=== PATIENT | female | born 1940 | race Caucasian/White ===

== ENCOUNTER 2017-08-15 08:50 | Observation (INO) ==
[2017-08-15] MEDS ORDERED: Ondansetron 4 MG/2 ML VIAL IVP ONE (09:14)
[2017-08-15] MEDS ORDERED: *HR* FentaNYL (PF) 100 MCG/2 ML VIAL IVP ONE ×3 (09:14→12:20)
[2017-08-15] MEDS ORDERED: 0.9 % Sodium Chloride 1,000 ML IVC ONE (09:17)
--- NOTE | 2017-08-15 09:21 | Emergency Department Note ---
Disposition Clinical Impression: Renal calculus Congestive heart failure Qualifiers: Heart failure type: other Qualified Code(s): I50.9 - Heart failure, unspecified Disposition: Admitted As Inpatient Condition: Good Time of Disposition: 15:16 General Adult HPI - General Chief complaint: ED Chest Pain Stated complaint: chest pain Time Seen by Provider: 08/15/17 09:13 Source: patient Limitations: no limitations Nursing Notes Reviewed: Yes Vital Signs Reviewed: Yes - History of Present Illness HPI Narrative: Patient complaining of left-sided back pain that began this morning. Is unable to get comfortable. Has not tried any medication to help this. Does radiate around into her abdomen. Also has suprapubic tenderness. No fevers or chills. No shortness of breath or chest pain. Pain Scale: 8 - Related Data Home Medications Medication Instructions Recorded Confirmed HYDROcodone/Acet 10/325 mg [[place] 1 tab PO QID PRN 08/15/17 08/15/17 10-325 mg] Omeprazole [PriLOSEC] 40 mg PO DAILY 08/15/17 08/15/17 SUMAtriptan Succinate [Imitrex] 100 mg PO DAILY PRN 08/15/17 08/15/17 Zolpidem [Ambien] 10 mg PO DAILY 08/15/17 08/15/17 Allergies Allergy/AdvReac Type Severity Reaction Status Date / Time aspirin [ASA] Allergy Hives Verified 08/15/17 09:20 All systems ED: reviewed and negative except as stated. Constitutional: Denies: fever Cardiovascular: Denies: chest pain, palpitations, syncope Respiratory: Denies: cough, dyspnea Gastrointestinal: Reports: abdominal pain (Suprapubic). Denies: nausea, vomiting, diarrhea, hematemesis, melena, hematochezia Genitourinary: Denies: urgency, dysuria Musculoskeletal: Reports: back pain (Left-sided). Denies: neck pain Integumentary: Denies: rash Neurological: Denies: headache, weakness Past Medical History - Past Medical History Attestation: Yes The following information was validated with the patient. 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 - Social History Smoking Status: Never smoker Smokeless Tobacco Status: No Alcohol use: Reports: none Drug use: Reports: none Physical Exam - General Limitations: no limitations General appearance: alert, in no apparent distress - Head Head exam: atraumatic, normocephalic, normal inspection - Eye Eye exam: Present: normal appearance, PERRL, EOMI - ENT ENT exam: normal exam, normal oropharynx, mucous membranes moist - Neck Neck exam: Present: normal inspection, full ROM, trachea midline - Chest Chest inspection: Present: normal inspection, symmetric chest wall rise - Respiratory Respiratory exam: Present: normal lung sounds bilaterally. Absent: respiratory distress, accessory muscle use - Cardiovascular Cardiovascular exam: Present: regular rate, normal rhythm, normal heart sounds - Abdominal Exam Abdominal exam: Present: soft, tenderness (To palpation of left flank around to the suprapubic area.). Absent: distention, guarding, rebound, rigidity, organomegaly - Extremities Exam Extremities exam: Present: normal inspection, full ROM. Absent: tenderness, pedal edema - Back Exam Back exam: Present: normal inspection, full ROM. Absent: tenderness - Neurological Exam Neurological exam: Present: alert, oriented X3 - Psychiatric Psychiatric exam: Present: normal affect, normal mood - Skin Skin exam: Present: warm, dry, intact, normal color. Absent: rash, cyanosis, diaphoresis Course Course Narrative: Female patient presenting to emergency department complaining of left flank pain. She states it radiats around into her groin area. She is also complaining of some suprapubic tenderness. Patient is writhing around in discomfort and is nauseated and retching in the room. She has left CVA tenderness on exam and suprapubic tenderness whenever I palpate. Her abdomen is otherwise soft and nonrigid. There are no masses. Lung sounds are clear heart tones are normal. Patient has no signs of edema to her extremities. She reports no medical history other than the daughter states she had a slight heart attack several years ago. No history of CHF. She does say that she had a kidney stone but this is been over 10 years ago. We will provide patient with pain relief earlier fluids and CT her abdomen. She is agreeable with this. - Reevaluation(s) Reevaluation #1: After second dose of fentanyl and Toradol patient is now resting comfortably. She states the pain has decreased significantly. She does have a 4 mm stone in her left ureter. With some mild hydronephrosis. We are waiting for her to give us a urine sample at this time. Time: 10:21 Reevaluation #2: Patient stating that she is in more pain again. She is wanting to go home however her oxygen saturation did drop to 88%. She has no history of any lung disease or heart disease. She did initially have a report of chest pain when she came in. The patient is insistent that she had actually have chest pain that was more in her lower back area is consistent with her left flank pain. I questioned her about this several times. She denies any shortness of breath or cough. She is well-appearing. I discussed with her that we will give her Percocet and see if that decreases her pain. She expressed understanding. Time: 13:38 Reevaluation #3: Patient is not on oxygen at home. When she believes reaction saturation drops to 85%. Despite her desire to go home we have discussed that she should stay in the hospital. She is agreeable to this at this time. Chest x-ray does not show a focal consolidation. She does not appear in any distress and she still denies any chest pain. We will admit patient to the hospital. Chest x-ray did show some pulmonary edema. As well as cardiomegaly. Time: 15:14 Vital Signs Temperature 97.9 F 08/15/17 08:53 Pulse Rate 96 08/15/17 08:53 Respiratory Rate 22 08/15/17 08:53 Blood Pressure 160/97 08/15/17 08:53 O2 Sat by Pulse Oximetry 90 08/15/17 08:53 Temperature 98.0 F 08/16/17 04:37 Pulse Rate 84 08/16/17 04:37 Respiratory Rate 16 08/16/17 04:37 Blood Pressure 97/63 08/16/17 04:37 O2 Sat by Pulse Oximetry 92 08/16/17 04:37 Oxygen Delivery Oxygen Delivery Room Air Medical Decision Making - Medical Records Medical records reviewed: Yes I reviewed the patient's medical records. - Lab Data Lab results reviewed: Yes I reviewed the patient's lab results. Result diagrams: 08/16/17 00:42 08/16/17 00:42 Lab Results 08/15/17 08/15/17 08/15/17 Range/Units 09:03 09:03 12:05 WBC 8.8 (4.3-11.1) K/mcL RBC 5.08 H (3.82-4.97) M/mcL Hgb 15.5 H (11.5-15.4) g/dL Hct 48.8 H (35.3-44.9) % MCV 96.1 (83.0-100.0) fL MCH 30.5 (28.0-33.3) pg MCHC 31.8 (31.6-35.5) g/dL RDW 13.2 (11.5-14.5) % Plt Count 351 (140-400) K/mcL MPV 9.6 (9.4-12.4) fL Immature Gran % 0.5 (0-4) % Seg Neutrophils % 78.1 % Lymphocytes % 16.1 % Monocytes % 4.1 % Eosinophils % 0.6 % Basophils % 0.6 % Neutrophils # 6.9 (1.6-8.9) K/mcL Lymphocytes # 1.4 (0.6-4.6) K/mcL Monocytes # 0.4 (0.0-1.3) K/mcL Eosinophils # 0.1 (0.0-0.6) K/mcL Basophils # 0.1 (0.0-0.2) K/mcL Sodium 142 (136-145) mEq/L Potassium 3.9 (3.5-5.1) mEq/L Chloride 106 (98-107) mEq/L Carbon Dioxide 26 (23-29) mEq/L BUN 10 (8-23) mg/dL Creatinine 0.93 (0.60-1.20) mg/dL Est GFR ( Amer) > 60 (> 60) Est GFR (Non-Af Amer) 58 L (> 60) BUN/Creatinine Ratio 11 (6-26) Glucose 130 H (70-105) mg/dL Calculated Osmolality 295 (280-300) Calcium 9.4 (8.6-10.3) mg/dL B-Natriuretic Peptide (Less than 100) pg/mL Urine Color Yellow (Yellow) Urine Clarity Clear (Clear) Urine pH 6.0 (5.0-8.0) pH Units Ur Specific [place] 1.020 (1.010-1.025) Urine Protein Negative (Neg-Trace) mg/dL Urine Glucose (UA) Normal (Normal) mg/dL Urine Ketones Negative (Negative) mg/dL Urine Blood Moderate H (Negative) Urine Nitrite Negative (Negative) Urine Bilirubin Negative (Negative) Urine Urobilinogen Normal (Normal) mg/dL Ur Leukocyte Esterase Small H (Negative) Urine Microscopic RBC 30-50 H (0-3) per hpf Urine Microscopic WBC 5-15 H (0-3) per hpf Ur Squamous Epith Cells Many H (None-Few) per lpf Urine Bacteria Few (None-Few) per hpf Hyaline Casts None Seen (None-Few) per lpf Ur Culture Indicated? NO. A (NO) 08/15/17 Range/Units 15:37 WBC (4.3-11.1) K/mcL RBC (3.82-4.97) M/mcL Hgb (11.5-15.4) g/dL Hct (35.3-44.9) % MCV (83.0-100.0) fL MCH (28.0-33.3) pg MCHC (31.6-35.5) g/dL RDW (11.5-14.5) % Plt Count (140-400) K/mcL MPV (9.4-12.4) fL Immature Gran % (0-4) % Seg Neutrophils % % Lymphocytes % % Monocytes % % Eosinophils % % Basophils % % Neutrophils # (1.6-8.9) K/mcL Lymphocytes # (0.6-4.6) K/mcL Monocytes # (0.0-1.3) K/mcL Eosinophils # (0.0-0.6) K/mcL Basophils # (0.0-0.2) K/mcL Sodium (136-145) mEq/L Potassium (3.5-5.1) mEq/L Chloride (98-107) mEq/L Carbon Dioxide (23-29) mEq/L BUN (8-23) mg/dL Creatinine (0.60-1.20) mg/dL Est GFR ( Amer) (> 60) Est GFR (Non-Af Amer) (> 60) BUN/Creatinine Ratio (6-26) Glucose (70-105) mg/dL Calculated Osmolality (280-300) Calcium (8.6-10.3) mg/dL B-Natriuretic Peptide 61 (Less than 100) pg/mL Urine Color (Yellow) Urine Clarity (Clear) Urine pH (5.0-8.0) pH Units Ur Specific [place] (1.010-1.025) Urine Protein (Neg-Trace) mg/dL Urine Glucose (UA) (Normal) mg/dL Urine Ketones (Negative) mg/dL Urine Blood (Negative) Urine Nitrite (Negative) Urine Bilirubin (Negative) Urine Urobilinogen (Normal) mg/dL Ur Leukocyte Esterase (Negative) Urine Microscopic RBC (0-3) per hpf Urine Microscopic WBC (0-3) per hpf Ur Squamous Epith Cells (None-Few) per lpf Urine Bacteria (None-Few) per hpf Hyaline Casts (None-Few) per lpf Ur Culture Indicated? (NO) - Radiology Data Radiology results reviewed: Yes I reviewed the patient's radiology results. Abdomen/Pelvis CT 08/15/17 09:15 IMPRESSION: 4 mm stone in the proximal left ureter with moderate hydronephrosis. D/ / Ken Egan MD / Ken Egan MD Interpreting Provider: Ken Egan MD Chest X-Ray 08/15/17 14:35 IMPRESSION: Mild congestive heart failure. D/ / 08/15/2017 14:54:49 Edin Casper MD / grecia Interpreting Provider: Edin Casper MD
[2017-08-15 09:45] LABS: BUN/Creatinine Ratio 11 (6-26); Blood Urea Nitrogen 10 mg/dL (8-23); Calcium 9.4 mg/dL (8.6-10.3); Carbon Dioxide 26 mEq/L (23-29); Chloride 106 mEq/L (98-107); Glucose 130 mg/dL (70-105); Osmolality,Calculated 295 (280-300); Potassium 3.9 mEq/L (3.5-5.1); Sodium 142 mEq/L (136-145); eGFR For African Americans > 60 (> 60); eGFR For Non-African Americans 58 (> 60)
[2017-08-15] MEDS ORDERED: Ketorolac 15 MG/ML VIAL IVP ONE (09:53)
--- NOTE | 2017-08-15 09:54 | Emergency Department Note ---
Disposition Clinical Impression: Atypical chest pain Disposition: Still a Patient Referrals: Gera Aguilar DO [Primary Care Provider] - Forms: ED Satisfaction Letter General Adult HPI - General Chief complaint: ED Chest Pain Stated complaint: chest pain Time Seen by Provider: 08/15/17 09:13 Source: patient Limitations: no limitations - History of Present Illness Pain Scale: 8 - Related Data Allergies Allergy/AdvReac Type Severity Reaction Status Date / Time aspirin [ASA] Allergy Hives Verified 08/15/17 09:20 Past Medical History - Past Medical History Medical history: Reports: no medical history Psychiatric history: Reports: no psych history 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 I agree with the documented findings, disposition and treatment plan as described except to the extent set forth below. Patient seen with emergency medicine resident Dr. Ave Mchugh, Please see a copy of his note for details of the H&P, ED evaluation, management and disposition. I have independently evaluated the patient and confirmed appropriate portions of the history and physical exam. Briefly: This 76-year-old female presents with chest pain last night now back pain rating to the left groin. History of kidney stones but she says feels different. EKG shows nonspecific ST-T changes but no acute ischemic changes noted. Patient getting labs medications CT scan. And urinalysis. Disposition pending. Time: 09:53 Vital Signs Temperature 97.9 F 08/15/17 08:53 Pulse Rate 96 08/15/17 08:53 Respiratory Rate 22 08/15/17 08:53 Blood Pressure 160/97 08/15/17 08:53 O2 Sat by Pulse Oximetry 90 08/15/17 08:53 Temperature 97.9 F 08/15/17 08:58 Pulse Rate 96 08/15/17 08:58 Respiratory Rate 22 08/15/17 08:58 Blood Pressure 160/97 08/15/17 08:58 O2 Sat by Pulse Oximetry 90 08/15/17 08:58 Oxygen Delivery Oxygen Delivery Room Air Medical Decision Making - Lab Data Result diagrams: 08/15/17 09:03 Lab Results 08/15/17 Range/Units 09:03 Sodium 142 (136-145) mEq/L Potassium 3.9 (3.5-5.1) mEq/L Chloride 106 (98-107) mEq/L Carbon Dioxide 26 (23-29) mEq/L BUN 10 (8-23) mg/dL Creatinine 0.93 (0.60-1.20) mg/dL Est GFR ( Amer) > 60 (> 60) Est GFR (Non-Af Amer) 58 L (> 60) BUN/Creatinine Ratio 11 (6-26) Glucose 130 H (70-105) mg/dL Calculated Osmolality 295 (280-300) Calcium 9.4 (8.6-10.3) mg/dL
[2017-08-15 12:23] LABS: Bilirubin,Urine Negative (Negative); Blood,Urine Moderate (Negative); Clarity,Urine Clear (Clear); Color,Urine Yellow (Yellow); Glucose,Urine (UA) Normal (Normal); Ketones,Urine Negative (Negative); Leukocyte Esterase,Urine Small (Negative); Nitrite,Urine Negative (Negative); Protein,Urine Negative (Neg-Trace); Urobilinogen,Urine Normal (Normal)
[2017-08-15 12:25] LABS: Bacteria,Urine Few per hpf (None-Few); Hyaline Casts,Urine None Seen per lpf (None-Few); RBC,Urine 30-50 per hpf (0-3); Squamous Epithelial Cell,Urine Many per lpf (None-Few)
[2017-08-15] MEDS ORDERED: *HR* OxyCODONE/APAP 7.5/325 TABLET PO STA (13:37)
[2017-08-15 15:19] LABS: Basophils # 0.1 K/mcL (0.0-0.2); Basophils % 0.6 %; Eosinophils # 0.1 K/mcL (0.0-0.6); Eosinophils % 0.6 %; Hematocrit 48.8 % (35.3-44.9); Hemoglobin 15.5 g/dL (11.5-15.4); Immature Granulocytes % 0.5 % (0-4); Lymphocytes # 1.4 K/mcL (0.6-4.6); Lymphocytes % 16.1 %; Mean Corpuscular HGB Conc 31.8 g/dL (31.6-35.5); Mean Corpuscular Hemoglobin 30.5 pg (28.0-33.3); Mean Corpuscular Volume 96.1 fL (83.0-100.0); Mean Platelet Volume 9.6 fL (9.4-12.4); Monocytes # 0.4 K/mcL (0.0-1.3); Monocytes % 4.1 %; Neutrophils # 6.9 K/mcL (1.6-8.9); Platelet Count 351 K/mcL (140-400); Red Blood Count 5.08 M/mcL (3.82-4.97); Red Cell Distribution Width 13.2 % (11.5-14.5); Segmented Neutrophils % 78.1 %
[2017-08-15] MEDS ORDERED: Naloxone 0.4 MG/ML INJ IVP PRN (16:17)
[2017-08-15] MEDS ORDERED: *HR* HYDROcodone/Acet 10/325 mg TABLET PO PRN (16:24)
[2017-08-15] MEDS ORDERED: Ondansetron 4 MG/2 ML VIAL IVP PRN (16:25)
[2017-08-15] MEDS ORDERED: *HR* OxyCODONE/APAP 5/325 TABLET PO PRN (16:30)
--- NOTE | 2017-08-15 16:32 | Internal Med History&Physical ---
Date of Encounter: 08/15/17 Time of Encounter: 15:45 Internal Medicine - H&P: HPI Chief complaint: Back pain Admitted From: Home Plans for Post Hospital Care: Home History of present illness: Ms. Damico is a 76 year old female who denies significant PMHx presented to ED with sudden onset of L flank pain. She stated it awoke her about 3AM. She has a prior hx of kidney stones but it has been many years. No current fever or chills. Some nausea. Says pain radiates around to L groin. No constipation or diarrhea. No overt hematuria. In ED she was found to have L kidney stone (4mm). Initially she wanted to get pain under control but had some issues with desaturation so will be placed in hospital at this time. Past Med Surg Social Fam HX - Past Medical History Source: patient Medical history: no medical history Psychiatric history: no psych history - Past Surgical History Surgical History: other (tubal ligation) - Social History Smoking Status: Never smoker Smokeless Tobacco Status: No Alcohol use: none Drug use: none Current living situation: Home - Independent Activity Level: Independent ambulation Additional social history: Denies family history of significance Internal Medicine - H&P: Meds HYDROcodone/Acet 10/325 mg [[place] 10-325 mg] 1 tab PO QID PRN 08/15/17 [History] Omeprazole [PriLOSEC] 40 mg PO DAILY 08/15/17 [History] SUMAtriptan Succinate [Imitrex] 100 mg PO DAILY PRN 08/15/17 [History] Zolpidem [Ambien] 10 mg PO DAILY 08/15/17 [History] 3 Allergy/AdvReac Type Severity Reaction Status Date / Time aspirin [ASA] Allergy Hives Verified 08/15/17 09:20 All Systems PM: A 10-system review of systems was performed and is negative for pertinent findings except as documented above in the HPI. - Constitutional Constitutional: no malaise, no weakness, no weight loss - EENT Eyes: no blurry vision, no discharge, no loss of vision Ears: no decreased hearing, no ear pain Nose, mouth and throat: no dry mouth, no hoarseness, no mouth lesions, no sore throat - Cardiovascular Cardiovascular ROS IM: no chest pain, no dyspnea, no lightheadedness, no orthopnea, no palpitations - Respiratory Respiratory: no cough, no dyspnea, no wheezing, no chest congestion - Gastrointestinal Gastrointestinal: abdominal pain, no loose stools, no melena - Genitourinary Genitourinary: flank pain, no urinary hesitancy, no urinary incontinence - Musculoskeletal Musculoskeletal ROS IM: back pain, no joint swelling, no stiffness - Integumentary Integumentary IM: no erythema, no rash - Neurological Neurological ROS: no abnormal gait, no focal weakness, no loss of vision - Endocrine Endocrine IM: no cold intolerance, no polydipsia - Hematologic/Lymphatic Hematologic/Lymphatic: no easy bleeding - Allergic/Immunologic Allergic/Immunologic: no itchy eyes, no wheezing - Constitutional Vitals: Temp Pulse Resp BP Pulse Ox 97.9 F 80 18 119/73 91 08/15/17 08:58 08/15/17 14:50 08/15/17 16:07 08/15/17 16:07 08/15/17 14:50 General appearance: Present: A&O X 3, pleasant, answers questions appropriately - Head Head exam: Present: normocephalic - Eye Eye exam: Present: EOMI, PERRL, conjuntiva pink - ENT ENT exam: Present: mucous membranes dry - Neck Neck exam general surgery: Present: supple. Absent: tenderness - Respiratory Respiratory exam: Present: CTAB. Absent: rhonchi, wheezes - Cardiovascular Cardiovascular exam: Present: RRR. Absent: tachycardia - GI/Abdominal GI/Abdominal exam: Present: normal bowel sounds, soft. Absent: mass, tenderness - Extremities Exam Extremities exam: Present: warm. Absent: pedal edema, tenderness - Back Exam Back exam: Present: normal inspection. Absent: muscle spasm - Neurological Exam Neurological exam: Present: alert, oriented X3, no focal deficits - Skin Skin exam: Present: dry, warm. Absent: rash Internal Med - H&P Results - Labs CBC & Chem 7: 08/15/17 09:03 08/15/17 09:03 - Assessment and plan (1) Renal calculus Current Visit: Yes Status: Acute Assessment and plan: Pt has 4mm stone with hydronephrosis. Will continue IV fluids and Flomax BID Check ultrasound tomorrow. If no resolution will ask urology to see. (2) Hypoxemia Current Visit: Yes Status: Acute Assessment and plan: Pt recorded to have low oxygen saturation with movement. CXR -mild CHF. Has no prior history and on exam can lie flat and lungs clear Will repeat PA and Lat CXR in am Suspect component of atelectasis due to pain - will order IS. Consider echo - perhaps as outpatient Assess oxygenation in AM. - Time Spent With Patient Total time spent is greater than 50% in coordination of care (as documented) at patient's floor/unit and/or counseling patient:
[2017-08-15] MEDS: Ringers Solution, Lactated 1,000 ML IVC SCH (18:28)
[2017-08-16 00:59] LABS: Hematocrit 36.9 % (35.3-44.9); Mean Corpuscular HGB Conc 32.8 g/dL (31.6-35.5); Mean Corpuscular Hemoglobin 31.2 pg (28.0-33.3); Mean Corpuscular Volume 95.1 fL (83.0-100.0); Platelet Count 258 K/mcL (140-400); Red Blood Count 3.88 M/mcL (3.82-4.97); Red Cell Distribution Width 13.2 % (11.5-14.5)
[2017-08-16 01:00] LABS: Hemoglobin 12.1 g/dL (11.5-15.4)
[2017-08-16 01:15] LABS: BUN/Creatinine Ratio 16 (6-26); Blood Urea Nitrogen 15 mg/dL (8-23); Calcium 8.2 mg/dL (8.6-10.3); Carbon Dioxide 25 mEq/L (23-29); Chloride 110 mEq/L (98-107); Glucose 154 mg/dL (70-105); Magnesium 1.9 mg/dL (1.6-2.6); Osmolality,Calculated 294 (280-300); Potassium 3.6 mEq/L (3.5-5.1); Sodium 140 mEq/L (136-145); eGFR For African Americans > 60 (> 60); eGFR For Non-African Americans 60 (> 60)
[2017-08-16] MEDS: *HR* HYDROcodone/Acet 10/325 mg TABLET PO PRN ×3 (01:54→17:52)
[2017-08-16] MEDS: Ringers Solution, Lactated 1,000 ML IVC SCH (08:26)
[2017-08-16] MEDS ORDERED: Isovue-370 500 ML INFUS..BTL IV ONE (14:15)
[2017-08-16] MEDS ORDERED: Acetaminophen 325 MG TABLET PO PRN (14:17)
[2017-08-16] MEDS ORDERED: Furosemide 20 MG/2 ML VIAL IVP ONE (17:04)
[2017-08-16] MEDS ORDERED: Simethicone 80 MG TAB.CHEW PO PRN (17:08)
--- NOTE | 2017-08-16 18:00 | Internal Med Progress Note ---
Date of Encounter: 08/16/17 Time of Encounter: 15:30 - Assessment and plan (1) Renal calculus Current Visit: Yes Status: Acute Assessment and plan: Remains on Flomax. Fluids stopped due to concern for respiratory status. To have ultrasound to eval for hydronephrosis. Pain control. (2) Hypoxemia Current Visit: Yes Status: Acute Assessment and plan: Continues to have desaturation. CTA ordered - no PE. Lasix has been ordered due to the volume of fluid. Will ask pulm to see tomorrow. Most likely will need oxygen at discharge. - Time Spent With Patient Total time spent is greater than 50% in coordination of care (as documented) at patient's floor/unit and/or counseling patient: - Subjective Interval history: Ms Damico is currently in observation due to kidney stone and hypoxia. She remains moderate to high risk due to potential for worsening clinical status. Ms Damico desaturates to low 80s when oxygen removed. She says she has been like this a long time and that she has never had a prior work up. Denies CP. Is dyspneic with activity. Family at bedside and confirms all of this. She says she now feels the pain in her groin and suprapubic not in her back. Does not think she passed stone. Awaiting renal ultrasound. - Constitutional Vitals: Temp Pulse Resp BP Pulse Ox 99 F 93 18 131/78 94 08/16/17 16:37 08/16/17 16:37 08/16/17 16:37 08/16/17 16:37 08/16/17 16:37 General appearance: Present: A&O X 3, pleasant, answers questions appropriately - Head Head exam: Present: normocephalic - Eye Eye exam: Present: conjuntiva pink - ENT ENT exam: Present: mucous membranes moist - Respiratory Respiratory exam: Absent: accessory muscle use, respiratory distress Additional comments: Coarse bilaterally posteriorly. - Cardiovascular Cardiovascular exam: Present: RRR. Absent: systolic murmur, tachycardia - GI/Abdominal GI/Abdominal exam: Present: distended, soft. Absent: tenderness - Extremities Exam Extremities exam: Present: warm. Absent: tenderness - Neurological Exam Neurological exam: Present: alert, oriented X3, no focal deficits - Skin Skin exam: Present: dry, warm. Absent: rash Internal Medicine: Result - Labs CBC & Chem 7: 08/16/17 00:42 08/16/17 00:42 Labs: Short CBC 08/16/17 Range/Units 00:42 WBC 7.7 (4.3-11.1) K/mcL Hgb 12.1 D (11.5-15.4) g/dL Hct 36.9 (35.3-44.9) % Plt Count 258 (140-400) K/mcL BMP 08/16/17 00:42 Sodium 140 Potassium 3.6 Chloride 110 H Carbon Dioxide 25 BUN 15 Creatinine 0.91 Glucose 154 H Calcium 8.2 L - Impressions Impressions Chest CTA 08/16/17 14:15 IMPRESSION: No acute pulmonary embolus. No acute abnormality in the chest. Minimal dependent atelectasis in the lower lobes. Adjacent 4 mm nodules in the anterior right middle lobe are likely benign. If the patient is high risk, follow up chest CT can be considered in 1 year. RECOMMENDATIONS: Fleischner Society guidelines for follow-up and management of incidentally detected pulmonary nodules: Multiple Solid Nodules: Nodule size less than 6 mm In a low-risk patient, no routine follow-up. In a high-risk patient, optional CT at 12 months. - Low risk patients include individuals with minimal or absent history of smoking and other known risk factors. - High risk patients include individuals with a history or smoking or known risk factors. Radiology 2017 http://pubs.rsna.org/doi/full/[email or web address] D/ / 08/16/2017 16:35:19 Mk Gage MD / Kathryn Brandon Interpreting Provider: Mk Gage MD Consult Discharge Plan - Plan Referrals: Gera Aguilar DO [Primary Care Provider] -
[2017-08-17 05:11] LABS: Hematocrit 37.6 % (35.3-44.9); Hemoglobin 12.5 g/dL (11.5-15.4); Mean Corpuscular HGB Conc 33.2 g/dL (31.6-35.5); Mean Corpuscular Hemoglobin 30.3 pg (28.0-33.3); Mean Platelet Volume 9.2 fL (9.4-12.4); Platelet Count 254 K/mcL (140-400); Red Blood Count 4.13 M/mcL (3.82-4.97)
[2017-08-17 05:31] LABS: BUN/Creatinine Ratio 9 (6-26); Blood Urea Nitrogen 5 mg/dL (8-23); Calcium 8.9 mg/dL (8.6-10.3); Carbon Dioxide 27 mEq/L (23-29); Chloride 106 mEq/L (98-107); Glucose 103 mg/dL (70-105); Osmolality,Calculated 288 (280-300); Potassium 3.5 mEq/L (3.5-5.1); Sodium 140 mEq/L (136-145); eGFR For African Americans > 60 (> 60); eGFR For Non-African Americans > 60 (> 60)
--- NOTE | 2017-08-17 11:07 | Pulmonology Consult Note ---
Date of Encounter: 08/17/17 Time of Encounter: 10:00 Assessment and Plan (1) Acute respiratory failure with hypoxia Current Visit: Yes Status: Acute Secondary to CHF and undiagnosed Obstructive lung disease. (2) Congestive heart failure Current Visit: Yes Status: Acute Patient has diastolic dysfunction can benefit from outpatient diuresis . Will need cardiology follow up. Qualifiers: Heart failure type: diastolic Heart failure chronicity: acute on chronic Qualified Code(s): I50.33 - Acute on chronic diastolic (congestive) heart failure (3) Suspected chronic obstructive pulmonary disease based on initial evaluation Current Visit: Yes Status: Acute Patient exposed to second hand smoke and wood smoke will need outpatient PFT'S will need outpatient Pulmonology. History of Present Illness Consult date: 08/17/17 Requesting physician: Perfecto Rogers Reason for consult: dyspnea Chief complaint: Shortness of breadth History of present illness: 77-year-old female with no significant past medical history comes with renal stone with hydronephrosis got better, found to have episodes of hypoxia at rest and CT angiography did not show evidence of pulmonary embolism had some evidence of some trapping has some evidence of some pulmonary edema. Imaging is negative for any significant pulmonary embolism. Patient can has some on and off shortness of breath and baseline denies much cough or sputum production denies any chest pain denies any chest tightness denies any wheezing. Patient denies any significant orthopnea no evidence of PND. Patient denies any GERD or Neuro Symptoms . Patient had some exertional desaturation. Past Med Surg Social Fam HX - Past Medical History Medical history: no medical history Psychiatric history: no psych history - Past Surgical History Surgical History: other (tubal ligation) - Social History Smoking Status: Never smoker Smokeless Tobacco Status: No Alcohol use: none Drug use: none Medications and Allergies HYDROcodone/Acet 10/325 mg [[place] 10-325 mg] 1 tab PO QID PRN 08/15/17 [History] Omeprazole [PriLOSEC] 40 mg PO DAILY 08/15/17 [History] SUMAtriptan Succinate [Imitrex] 100 mg PO DAILY PRN 08/15/17 [History] Zolpidem [Ambien] 10 mg PO DAILY 08/15/17 [History] Furosemide [Lasix] 20 mg PO DAILY #30 tablet 08/17/17 [Rx] 3 Allergy/AdvReac Type Severity Reaction Status Date / Time aspirin [ASA] Allergy Hives Verified 08/15/17 09:20 All Systems: The remainder of the systems were reviewed and are negative Physical Examination Vital Signs: Vital Signs, Last 4 Hours Temp Pulse Resp BP Pulse Ox 08/17/17 10:51 98.3 F 85 16 124/81 93 08/17/17 07:39 94 Auscultation: bilateral: clear Results - Laboratory Findings CBC and BMP: 08/17/17 04:26 08/17/17 04:26 Abnormal lab findings: Abnormal lab results MPV 9.2 fL (9.4-12.4) L 08/17/17 04:26 BUN 5 mg/dL (8-23) L 08/17/17 04:26 Creatinine 0.53 mg/dL (0.60-1.20) L 08/17/17 04:26 Urine Blood Moderate (Negative) H 08/15/17 12:05 Ur Leukocyte Esterase Small (Negative) H 08/15/17 12:05 Urine Microscopic RBC 30-50 per hpf (0-3) H 08/15/17 12:05 Urine Microscopic WBC 5-15 per hpf (0-3) H 08/15/17 12:05 Ur Squamous Epith Cells Many per lpf (None-Few) H 08/15/17 12:05 Ur Culture Indicated? NO. (NO) A 08/15/17 12:05 - Clinical Findings Intake & Output: Intake & Output 08/16/17 08/17/17 08/17/17 23:59 07:59 15:59 Intake Total 240 / 240 120 / 120 0 / 0 Output Total 1350 / 1350 400 / 400 Balance -1110 / -1110 -280 / -280 0 / 0 Consult Discharge Plan - Plan Instructions: Heart Failure (DC), Kidney Stones (DC) Additional Instructions: Follow-up appointments: If there is not an appointment listed below, please call your physician and schedule a follow-up appointment. If you have congestive heart failure and your symptoms return, make an appointment with your physician. Medication List: Carry an up to date list of medications you are taking at all time. We have given you an updated medication list including any new medications that you have been prescribed. Please provide that list to your primary provider Symptoms: If your condition changes or you experience any of the following symptoms, notify your physician immediately: Unusual or worsening pain, fever, persistent nausea and vomiting, bleeding, increase in swelling (especially in your legs), sudden weight gain, extreme dizziness, chest pain, increased drainage or redness from a wound or incision. Go to the emergency department if you experience a problem with breathing. Weights: If you have a history of swelling or shortness of breath, weigh yourself daily and notify your physician if you have a weight gain of two or more pounds in one day or 5 or more pounds in a week. If you experience any of the warning signs for stroke: Sudden numbness or weakness of the face, arm or leg; especially on one side of the body, sudden confusion, trouble speaking or understanding, sudden trouble seeing in one or both eyes, sudden trouble walking, dizziness, loss of balance or coordination, sudden sever headache with no cause; Call 911 or go to the emergency room. Stroke is a medical emergency. Some risk factors for stroke: Age, cigarette smoking, diabetes, excessive alcohol consumption, family history , high blood pressure, overweight, physical inactivity, prior stroke, heart attack, diagnosis of carotid artery stenosis or other artery disease. If you smoke, STOP: Smoking or tobacco use significantly increases your risk of heart and lung disease. Your chance of disease greatly increases if you continue to smoke. For more information, call the [place] tobacco quit line for smoking cessation 9-603- QUIT-NOW ( ) Referrals: Kely Guardado CNP [Advanced Practice Nurse] - 08/24/17 2:30 pm Joy Kaye MD [Partnered Physician] - 09/10/17 9:30 am Prescriptions: Furosemide [Lasix] 20 mg PO DAILY #30 tablet
[2017-08-17] MEDS ORDERED: Acetaminophen 325 MG TABLET PO PRN (14:14)
[2017-08-17 14:51] VITALS: BP 122/76
--- NOTE | 2017-08-17 15:01 | Discharge Summary ---
- NOTES TO OUTPATIENT PROVIDER Notes to Outpatient Provider: Pt presented to ED with back and abdominal pain and found to have renal stone. She was noted to be very hypoxic and subsequently admitted. Appears to have passed stone. Went home with oxygen and will follow up with pulmonary. Date of Encounter: 08/17/17 Time of Encounter: 15:00 - Discharge Diagnosis (1) Renal calculus Priority: Primary Status: Resolved (2) Hypoxemia Priority: Secondary Status: Acute Hospital course: Ms. Damico is a 77 year old female who denies medical history presented to ED with back and groin pain. Found to have renal stone and hydronephrosis. She was also hypoxic and subsequently admitted. Ms Damico was placed on med surg. She was started on IV fluids and pain management. She remained hypoxic and ultimately seen by pulmonology. She was discharged on oxygen and will follow as outpatient. Repeat ultrasound showed resolution of hydronephrosis. Today she is afebrile. She is ready for d/c home. Discharge discussed with: patient, family - Time Spent with Patient Total time spent providing and/or coordinating discharge services: 41 min - Discharge Medications Prescriptions: Furosemide [Lasix] 20 mg PO DAILY #30 tablet Home Medications: HYDROcodone/Acet 10/325 mg [[place] 10-325 mg] 1 tab PO QID PRN 08/15/17 [History] Omeprazole [PriLOSEC] 40 mg PO DAILY 08/15/17 [History] SUMAtriptan Succinate [Imitrex] 100 mg PO DAILY PRN 08/15/17 [History] Zolpidem [Ambien] 10 mg PO DAILY 08/15/17 [History] Furosemide [Lasix] 20 mg PO DAILY #30 tablet 08/17/17 [Rx] Allergies/Adverse Reactions: 3 Allergy/AdvReac Type Severity Reaction Status Date / Time aspirin [ASA] Allergy Hives Verified 08/15/17 09:20 Date of admission: 08/15/17 15:38 Primary care physician: Gera Aguilar, Consults: 08/16/17 08:33 Consult to Nurse Navigator [CONS] Routine Comment: CHF education? no prior hx 08/16/17 17:02 Consult to Pulmonology [CONS] Routine Consulting Provider: [facility] Reason for Consult: Hypoxia - cause not clear Time Notified: 17:00 Call Completed: Yes 08/17/17 11:21 Consult to Pulmonology [CONS] Routine Consulting Provider: [facility] Reason for Consult: shortness of breath, new onset oxygen dependence Time Notified: 11:21 Call Completed: Yes Discharging clinician: Perfecto Rogers Anticipated date of discharge: 08/17/17 - Constitutional Vitals: Temp Pulse Resp BP Pulse Ox 99.1 F 94 15 122/76 90 08/17/17 14:41 08/17/17 14:41 08/17/17 14:41 08/17/17 14:41 08/17/17 14:41 General appearance: Present: A&O X 3, pleasant, answers questions appropriately - Head Head exam: Present: normocephalic - Eye Eye exam: Present: EOMI, conjuntiva pink - ENT ENT exam: Present: mucous membranes moist - Respiratory Respiratory exam: Present: CTAB. Absent: rhonchi, wheezes - Cardiovascular Cardiovascular exam: Present: RRR. Absent: tachycardia - GI/Abdominal GI/Abdominal exam: Present: soft. Absent: tenderness - Extremities Exam Extremities exam: Present: warm. Absent: tenderness - Neurological Exam Neurological exam: Present: alert, oriented X3 - Patient Status Disposition: Home, Self-Care Condition: Good Functional capacity at discharge: independent ambulation Overall status at discharge: patient is progressing back to baseline - Discharge Instructions Instructions: Heart Failure (DC), Kidney Stones (DC) Follow Up With: Kely Guardado CNP [Advanced Practice Nurse] - 08/24/17 2:30 pm Joy Kaye MD [Partnered Physician] - 09/10/17 9:30 am Additional Instructions: Follow-up appointments: If there is not an appointment listed below, please call your physician and schedule a follow-up appointment. If you have congestive heart failure and your symptoms return, make an appointment with your physician. Medication List: Carry an up to date list of medications you are taking at all time. We have given you an updated medication list including any new medications that you have been prescribed. Please provide that list to your primary provider Symptoms: If your condition changes or you experience any of the following symptoms, notify your physician immediately: Unusual or worsening pain, fever, persistent nausea and vomiting, bleeding, increase in swelling (especially in your legs), sudden weight gain, extreme dizziness, chest pain, increased drainage or redness from a wound or incision. Go to the emergency department if you experience a problem with breathing. Weights: If you have a history of swelling or shortness of breath, weigh yourself daily and notify your physician if you have a weight gain of two or more pounds in one day or 5 or more pounds in a week. If you experience any of the warning signs for stroke: Sudden numbness or weakness of the face, arm or leg; especially on one side of the body, sudden confusion, trouble speaking or understanding, sudden trouble seeing in one or both eyes, sudden trouble walking, dizziness, loss of balance or coordination, sudden sever headache with no cause; Call 911 or go to the emergency room. Stroke is a medical emergency. Some risk factors for stroke: Age, cigarette smoking, diabetes, excessive alcohol consumption, family history , high blood pressure, overweight, physical inactivity, prior stroke, heart attack, diagnosis of carotid artery stenosis or other artery disease. If you smoke, STOP: Smoking or tobacco use significantly increases your risk of heart and lung disease. Your chance of disease greatly increases if you continue to smoke. For more information, call the [place] tobacco quit line for smoking cessation QUIT-NOW ( ) - Diet and Activity Activity: increase activity as tolerated Diet: advance to your usual diet
--- NOTE | 2017-08-17 16:36 | Electrocardiograph Report ---
[place] [id number] Test Date: 2017-08-15 Pat Name: Razia Damico Department: 103 Room: 3A14 Gender: F Surg Physician Asst: TK : 1940 Requested By: Perfecto Rogers Order Number: [id number] Reading MD: Leigh Richardson Measurements Intervals [place] Rate: 84 P: 37 NV: 171 QRS: 9 QRSD: 109 T: 40 QT: 363 QTc: 404 Interpretive Statements SINUS RHYTHM ARTIFACT Electronically Signed On 08-17-2017 16:35:00 EDT by Leigh Richardson
== END 2017-08-17 20:03 | disposition home or self-care (01) ==
LOC: EMEROO 08:50 → 3ANU 08:50
PROVIDERS: ADMIT Internal Medicine; ATTEND Internal Medicine